=== PATIENT | male | born 1990 ===

== ENCOUNTER 2017-11-26 14:08 | Emergency (ER) | payer BC ==
[2017-11-26 14:38] VITALS: BP 139/84
--- NOTE | 2017-11-26 15:11 | UC ---
Eye Complaint HPI - HPI Summary HPI Summary: 27 y/o male presents to the urgent care c/o B/L eye suddenly swelling about 2 1/ 2 hrs ago. Pt reports he was buying something at [employer], he felt sudden onset of both eyes itchiness and watery discharge, He rubbed his eyes. Then 20min later he felt both eyes were swelling and closing. He took a picture of himself. He washed his hands immediately and washed his eye. He bought some OTC eye drops and Claritin PO around 12:30pm to alleviate symptoms and came to the clinic. Now swelling has decrease and it is very mild. Pt shows picture and B/L eye swelling was moderate. Pt denies eye pain, photophobia,visual disturbance or FB, injury, CORTEZ, dizziness, SOB, throat swelling, chest pain, abdominal pain. N/V/D. - History of Current Complaint Chief Complaint: UCEye Stated Complaint: EYE COMPLAINT Time Seen by Provider: 11/26/17 15:09 Hx Obtained From: Patient Onset/Duration: Sudden Onset, Lasting Hours - 3hrs Timing: Constant Severity Initially: Mild Severity Currently: Mild Pain Intensity: 0 Pain Scale Used: 0-10 Numeric Location of Injury: Conjunctiva - B/L redness, Periorbital - B/L swelling Character: Dull - pressure Aggravating Factor(s): Blinking Alleviating Factor(s): Eye Drops - antihistamine OTC eye drops and Loratadine Associated Signs And Symptoms: Positive: Drainage (Clear), Swelling - B/L eye. Negative: Photophobia, Drainage (Purulent), Vision Impairment Bilateral, Fever - Risk Factors Penetrating Injury Risk Factor: Negative Acute Glaucoma Risk Factors: Negative Optic Artery Occlusion Risk Factors: Negative - Allergies/Home Medications Allergies/Adverse Reactions: Allergies Allergy/AdvReac Type Severity Reaction Status Date / Time sulfamethoxazole Allergy Rash Verified 11/26/17 14:39 [From Bactrim] trimethoprim [From Bactrim] Allergy Rash Verified 11/26/17 14:39 Home Medications: Home Medications Loratadine [Claritin 10 MG CAP] 10 mg PO DAILY 11/26/17 [History Confirmed 11/26] PMH/Surg Hx/FS Hx/Imm Hx Previously Healthy: Yes Other Respiratory History: Seasonal allergies - Surgical History Surgical History: Yes Surgery Procedure, Year, and Place: ACL, MCL, Meniscus on left knee. Left labrum. Nose rhinoplasty. [place] teeth - Family History Known Family History: Positive: None - PT denies FMHX - Social History Occupation: Employed Full-time Lives: With Family Alcohol Use: Weekly Substance Use Type: None Smoking Status (MU): Never Smoked Tobacco Review of Systems Constitutional: Negative Skin: Negative Eyes: Drainage - clear, Eye Redness - B/L eye, Other - B/L eye sudden swelling ENT: Negative Respiratory: Negative Cardiovascular: Negative Gastrointestinal: Negative Genitourinary: Negative Motor: Negative Neurovascular: Negative Musculoskeletal: Negative Neurological: Negative Psychological: Negative Is Patient Immunocompromised?: No All Other Systems Reviewed And Are Negative: Yes Physical Exam - Summary Physical Exam Summary: Vital Signs Reviewed: Yes General: Well appearing, well nourished male in no apparent pain distress Eyes: Positive: mild B/L Conjunctiva Inflamed - Visual acuity: WNL,Visual bragg : full to confrontation.mild B/L periorbital soft tissue swelling RT>LF, non tender to palpation. PERRLA, EOMI intact w/out limitation or complaint of pain. eyelashes clear. mild tearing. No ciliary flush. No chemosis, No photophobia. Normal fundoscopic exam; no proptosis, exophthalmos, nystagmus. No FB observed ENT: Positive: Normal ENT inspection, Hearing grossly normal, Pharynx normal, Nasal congestion, Nasal drainage - clear, TMs normal - B/L external ear canal clear , TM's WNL. Negative: Tonsillar swelling, Tonsillar exudate Neck: Positive: Supple, Nontender, No Lymphadenopathy Respiratory: Positive: Chest nontender, Lungs clear, Normal breath sounds, No respiratory distress Cardiovascular: Positive: RRR, No Murmur, Pulses Normal, Brisk Capillary Refill Abdomen Description: Positive: Nontender, No Organomegaly, Soft. Negative: CVA Tenderness (R), CVA Tenderness (L) Bowel Sounds: Positive: Present Musculoskeletal: Positive: Strength Intact, ROM Intact, No Edema Neurological Exam: Normal Psychological Exam: Normal Skin Exam: Normal Triage Information Reviewed: Yes Vital Signs: Initial Vital Signs Temp 98.7 F 11/26/17 14:34 Pulse 78 11/26/17 14:34 Resp 16 11/26/17 14:34 BP 139/84 11/26/17 14:34 Pulse Ox 100 11/26/17 14:34 Eye Complaint Course/Dx - Course Course Of Treatment: 27 y/o male presents to the urgent care c/o B/L eye suddenly swelling about 2 1/2 hrs ago. Pt reports he was buying something at [employer], he felt sudden onset of both eyes itchiness and watery discharge, He rubbed his eyes. Then 20min later he felt both eyes were swelling and closing. He took a picture of himself. He washed his hands immediately and washed his eye. He bought some OTC eye drops and Claritin PO around 12:30pm to alleviate symptoms and came to the clinic. Now swelling has decrease and it is very mild. Pt shows picture and B/L eye swelling was moderate. Pt denies eye pain, photophobia,visual disturbance or FB, injury, CORTEZ, dizziness, SOB, throat swelling, chest pain, abdominal pain. N/V/D.Hx obtained. Pt w/ probably an allergic reaction to unkown allergen. Pt Rx Prednisone PO taper dose and Patanol ophtalmic drops to alleviate symptoms. Advised to f/u with her PCP or [facility] David further treatment on his allergies. Pt advised if SOb or throat swelling devlopes to immediately go to the ER for further treatment. Pt understood and agreed with plan of care. - Differential Dx/Diagnosis Differential Diagnosis/HQI/PQRI: Conjunctivitis, Corneal Abrasion, Periorbital Cellulitis, Orbital Cellulitis, Uveitis, Other - allergic reaction, Provider Diagnoses: 1- Acute allergic conjunctivitis. 2- Allergic reaction Discharge - Sign-Out/Discharge Documenting (check all that apply): Discharge/Admit/Transfer - D/C home - Discharge Plan Condition: Stable Disposition: HOME Prescriptions: Olopatadine 0.1% OPHTH (NF) [Patanol 0.1% OPHTH (NF)] 1 drop BOTH EYES BID #1 btl predniSONE TAB* [Deltasone 20 MG TAB*] 20 mg PO DAILY #11 tab Patient Education Materials: Allergies (ED), Conjunctivitis (ED) Referrals: [facility] [place] [facility] [place] [facility] [Outside] - 3 Days Iftikhar David MD [Medical Doctor] - 1 Week No Primary Care Phys,NOPCP [Primary Care Provider] - Additional Instructions: 1-Please apply ophthalmic drops as instructed . Take Prednisone PO taper dose to alleviate swelling. 2- Please f/u w/ your PCP or DR David for further management in your allergies - Billing Disposition and Condition Condition: STABLE Disposition: Home
== END 2017-11-26 15:54 | disposition home or self-care (01) ==
LOC: UCEAST 14:08
DX: H10.13 Acute atopic conjunctivitis, bilateral (principal); T78.40XA Allergy, unspecified, initial encounter; Z88.2 Allergy status to sulfonamides; Z88.1 Allergy status to other antibiotic agents; X58.XXXA Exposure to other specified factors, initial encounter
CPT/HCPCS: 99202; G0463